=== PATIENT | female | born 1950 | race American Indian/Alaskan Native ===

== ENCOUNTER 2022-01-22 11:37 | Emergency (ER) | payer MEDICARE ==
[2022-01-22 12:49] VITALS: BP 144/73
--- NOTE | 2022-01-22 13:04 | Event Note ---
ED Screening Note ED Screening Note: 71-year-old female brought in by for bedsores on her buttock that has been there for months. Patient is paralyzed bedbound, total care He denies fever, she does not appear to be in pain, denies vomiting, behavior changes. 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 I interviewed the patient and performed a limited physical exam. This patient is a pulled from the waiting room to triage room for an initial assessment of adrenal studies and then returned to the waiting room pending results of the studies. The ultimate final evaluation and disposition may be performed by another provider depending on room and provider availability.
[2022-01-22 14:51] LABS: Hematocrit 36.8 % (30.3-42.9); Hemoglobin 12.2 gm/dl (10.1-14.3); Mean Corpuscular HGB Conc 33 % (30-34); Mean Corpuscular Volume 90 fl (79-97); Platelet Count 262 K/mm3 (140-440); Red Blood Count 4.11 M/mm3 (3.65-5.03); Red Cell Distribution Width 13.7 % (13.2-15.2)
[2022-01-22 15:03] LABS: Blood Urea Nitrogen 7 mg/dL (7-17); Calcium 9.5 mg/dL (8.4-10.2); Hemolysis Index 22
[2022-01-22 15:20] LABS: BUN/Creatinine Ratio 14
== END 2022-01-22 15:00 | disposition left against medical advice (07) ==
LOC: ED 11:37
DX: S31.809A Unspecified open wound of unspecified buttock, initial encounter (principal); Z53.21 Procedure and treatment not carried out due to patient leaving prior to being seen by health care provider; X58.XXXA Exposure to other specified factors, initial encounter; Y93.89 Activity, other specified; Y92.488 Other paved roadways as the place of occurrence of the external cause; Y99.8 Other external cause status
CPT/HCPCS: 36415; 80048; 85027

== ENCOUNTER 2022-01-23 10:42 | Emergency (ER) | payer MEDICARE ==
[2022-01-23 13:03] VITALS: BP 156/90
--- NOTE | 2022-01-23 13:59 | Emergency Department Report ---
- General Chief complaint: Wound/Laceration Stated complaint: BUTT PAIN Time Seen by Provider: 01/23/22 13:48 Source: family Mode of arrival: Wheelchair Limitations: Physical Limitation - History of Present Illness Initial comments: 71 YO DEBILITATED FRAIL FEMALE COMES TO ER, BY HER , FOR WOUND ON BUTT. SHE HAS HAD CVA AND HE IS CARING FOR HER ALONE HOME CARE TO START NEXT WEEK NO FEVER PT IN HER USUAL HEALTH OTHER THAN THE NOTED WOUND MD complaint: other Tetanus Up to Date: yes Improves with: none Worsens with: none Context: none Associated symptoms: denies other symptoms Treatments Prior to Arrival: none - Related Data Previous Rx's Medication Instructions Recorded Last Taken Type Hydrocolloid Dressing [Duoderm] 1 each TP Q3D #100 unit 01/23/22 Unknown Rx Allergies Allergy/AdvReac Type Severity Reaction Status Date / Time No Known Allergies Allergy Verified 01/23/22 13:03 Abscess Boil HPI - HPI Chief Complaint: Wound/Laceration Stated Complaint: BUTT PAIN Time Seen by Provider: 01/23/22 13:48 Home Medications: Previous Rx's Medication Instructions Recorded Last Taken Type Hydrocolloid Dressing [Duoderm] 1 each TP Q3D #100 unit 01/23/22 Unknown Rx Allergies/Adverse Reactions: Allergies Allergy/AdvReac Type Severity Reaction Status Date / Time No Known Allergies Allergy Verified 01/23/22 13:03 ED Review of Systems ROS: Stated complaint: BUTT PAIN Other details as noted in HPI Comment: All other systems reviewed and negative ED Past Medical Hx - Past Medical History Previous Medical History?: Yes Hx CVA: Yes - Surgical History Past Surgical History?: Yes - Family History Family history: no significant - Social History Smoking Status: Never Smoker Substance Use Type: None - Medications Home Medications: Home Medications Medication Instructions Recorded Confirmed Last Taken Type Hydrocolloid Dressing [Duoderm] 1 each TP Q3D #100 unit 01/23/22 Unknown Rx ED Physical Exam - General Limitations: Physical Limitation - Head Head exam: Present: atraumatic, normocephalic - Eye Eye exam: Present: normal appearance - ENT ENT exam: Present: mucous membranes moist - Neck Neck exam: Present: normal inspection - Respiratory Respiratory exam: Present: normal lung sounds bilaterally. Absent: respiratory distress - Cardiovascular Cardiovascular Exam: Present: regular rate, normal rhythm. Absent: systolic murmur, diastolic murmur, rubs, gallop - GI/Abdominal GI/Abdominal exam: Present: soft, normal bowel sounds - Extremities Exam Extremities exam: Present: normal inspection - Back Exam Back exam: Present: normal inspection - Neurological Exam Neurological exam: Present: alert - Psychiatric Psychiatric exam: Present: normal affect, normal mood - Skin Skin exam: Present: warm, dry, normal color. Absent: rash ED Course Vital Signs 01/23/22 12:58 Temperature 97.9 F Pulse Rate 82 Respiratory 16 Rate Blood Pressure 156/90 [Right] O2 Sat by Pulse 100 Oximetry ED Medical Decision Making - Medical Decision Making Vital Signs 01/23/22 12:58 Temperature 97.9 F Pulse Rate 82 Respiratory 16 Rate Blood Pressure 156/90 [Right] O2 Sat by Pulse 100 Oximetry STAGE II WOUND OF SACRUM NO NECROSIS NO ESCAR NO TRACKING/TUNNELING NO DRAINAGE NO BONE EXPOSURE AREA APPROX 3 INC BY 3 INCH PINK GRANULATION TISSUE DUODERM TYPE DRESSING APPLIED NO FEVER NO TACHYCARDIA NO HYPOTENSION WOUND CLINIC REFERRAL GIVEN WILL CALL FOR FOLLOW UP NEXT WEEK WOUND CARE INSTRUCTIONS GIVEN TO THE DC HOME WITH DC PLAN OF CARE INCLUDING FOLLOW UP - Differential Diagnosis DECUB WOUND Critical care attestation.: If time is entered above; I have spent that time in minutes in the direct care of this critically ill patient, excluding procedure time. ED Disposition Clinical Impression: Sacral wound, Debility, unspecified Disposition: 01 HOME / SELF CARE / HOMELESS Is pt being admited?: No Does the pt Need Aspirin: No Condition: Stable Instructions: Preventing Pressure Injuries Additional Instructions: WOUND CARE CLINIC TO EVAL ---[id number] OR HAVE HOME HEALTH NURSE HAVE WOUND TEAM COME TO INSPECT WOUND TURN PT EVERY 2 HOURS SIDE TO SIDE KEEP PT OFF THE WOUNDED AREA ADEQUATE NOURISHMENT AND HYDRATION IS IMPORTANT KEEP PRESSURE OFF ALL BONES; SUCH HEELS Prescriptions: Hydrocolloid Dressing [Duoderm] 1 each TP Q3D #100 unit [facility]errals[facility] - 3-5 Days Time of Disposition: 13:58
== END 2022-01-23 15:46 | disposition home or self-care (01) ==
LOC: ED 10:42
DX: L89.159 Pressure ulcer of sacral region, unspecified stage (principal); Z79.899 Other long term (current) drug therapy
CPT/HCPCS: 99282